=== PATIENT | female | born 1990 | race Caucasian/White ===

== ENCOUNTER 2016-12-03 21:23 | Emergency (ER) | payer MEDICAID ==
[~2016-12-03] VITALS: Ht 165.1 cm; Wt 85.0 kg
[~2016-12-03 21:23] MED LIST: ACET1TAB40 PO; CIPR500T4 PO; DOXY100T20 PO; HC1C30 TOP; NITR-58 PO; ONDA4TAB8 PO; PHEN-538 PO
[2016-12-03 21:44] VITALS: Ht 165.1 cm; Wt 85.0 kg
[2016-12-03 22:16] LABS: URINE BLOOD (Dip) POC 1+ (NEGATIVE)
[2016-12-03] MEDS ORDERED: CIPR500T4 PO (22:21)
[2016-12-03] MEDS ORDERED: PHEN-538 PO (22:21)
--- NOTE | 2016-12-03 22:22 | ERD ---
ER Documentation Chief Complaint Date/Time DATE: 12/03/16 TIME: 22:22 Chief Complaint low back pain x 3 days, burn when urinate HPI This is a 26-year-old female comes in with low back pain for 3 days and burning when she urinates. No nausea no vomiting no chills. No sick contacts. No other current issues. ROS All systems reviewed and are negative except as per history of present illness. Medications Home Meds Active Scripts Phenazopyridine Hcl* (Pyridium*) 200 Mg Tab, 200 MG PO TID Y for URINARY PAIN, # 6 TAB Prov:MICHAEL GARCIA 12/03/16 Ciprofloxacin Hcl* (Ciprofloxacin Hcl*) 500 Mg Tablet, 500 MG PO BID for 5 Days , TAB Prov:MICHAEL GARCIA 12/03/16 Ondansetron Hcl* (Zofran*) 4 Mg Tablet, 4 MG PO Q6H for NAUSEA AND/OR VOMITING, #30 TAB Prov:RED FREIRE 06/01/16 Nitrofurantoin Monohyd Macrocr* (Macrobid*) 100 Mg Capsr, 100 MG PO BID for 7 Days, CAP Prov:RED FREIRE 06/01/16 Ciprofloxacin Hcl* (Ciprofloxacin Hcl*) 500 Mg Tablet, 500 MG PO BID for 3 Days , TAB Prov:JOSÉ LUIS KAUR DO 01/29/16 Phenazopyridine Hcl* (Pyridium*) 200 Mg Tab, 200 MG PO TID Y for URINARY PAIN, # 6 TAB Prov:JOSÉ LUIS KAUR DO 01/29/16 Doxycycline Hyclate* (Doxycycline Hyclate*) 100 Mg Tablet.dr, 100 MG PO BID for 7 Days, TAB Prov:AMAYA FIELDS DO 10/10/15 Hydrocortisone* Topical (Hydrocortisone* Topical) 1%-28.35 Gm Cream..g., 1 APPLIC TOP Q6 Y for ITCHING, #1 TUB Prov:AMAYA FIELDS DO 10/10/15 Acetaminophen-Codeine* (Acetaminophen-Cod #3*) 300-30 Mg Tab, 1 TAB PO Q4H Y for PAIN, #14 TAB Prov:MARGY LEWIS MD 12/03/14 Allergies Allergies: Coded Allergies: No Known Drug Allergy (Verified Allergy, Mild, 10/01/10) PMhx/Soc History of Surgery: No Anesthesia Reaction: No Hx Neurological Disorder: No Hx Respiratory Disorders: No Hx Cardiac Disorders: Yes (had HTN during ) Hx Psychiatric Problems: No Hx Miscellaneous Medical Probl: No Hx Alcohol Use: No Hx Substance Use: No Hx Tobacco Use: No Physical Exam Vitals Vital Signs Date Time Temp Pulse Resp B/P Pulse Ox O2 Delivery O2 Flow Rate FiO2 12/03/16 21:44 98.4 84 18 117/63 95 Physical Exam Const: [] Head: Atraumatic Eyes: Normal Conjunctiva ENT: Normal External Ears, Nose and Mouth. Neck: Full range of motion..~ No meningismus. Resp: Clear to auscultation bilaterally Cardio: Regular rate and rhythm, no murmurs Abd: Soft, non tender, non distended. Normal bowel sounds Skin: No petechiae or rashes Back: No midline or flank tenderness Ext: No cyanosis, or edema Neur: Awake and alert Psych: Normal Mood and Affect Results 24 hrs Laboratory Tests Test 12/03/16 22:18 Bedside Urine pH (LAB) 7.0 Bedside Urine Protein (LAB) Negative Bedside Urine Glucose (UA) Negative Bedside Urine Ketones (LAB) Negative Bedside Urine Blood 1+ Bedside Urine Nitrite (LAB) Negative Bedside Urine Leukocyte Esterase (L 1+ Procedures/MDM Medical decision-making: Patient has evidence of urinary tract infection on POC urine dip. Patient will be discharged from [facility]. Follow-up in 8 hours for serial abdominal exams. Follow-up with PMD tomorrow as well. Return for worsening symptoms. Departure Diagnosis: Primary Impression: Dysuria Condition: Stable Patient Instructions: Urinary Tract Infections in Women MICHAEL GARCIA Dec 03, 2016 22:22
[2016-12-03 22:28] VITALS: BP 123/65; PULSE 77; RESP 18; TEMP 97.9
== END 2016-12-03 22:28 | disposition home or self-care (01) ==
LOC: E/R 21:23
DX: R30.0 Dysuria (principal)
CPT/HCPCS: 81003; Z7502; 99283

== ENCOUNTER 2017-01-16 00:04 | Emergency (ER) | payer SELFPAY ==
[~2017-01-16] VITALS: Ht 157.5 cm; Wt 81.5 kg
[2017-01-16 00:18] VITALS: Ht 157.5 cm; Wt 81.5 kg
== END 2017-01-16 00:18 | disposition left against medical advice (07) ==
LOC: E/R 00:04
DX: Z53.21 Procedure and treatment not carried out due to patient leaving prior to being seen by health care provider (principal)

== ENCOUNTER 2017-04-28 21:02 | Outpatient (CLI) | payer MEDICAID ==
[~2017-04-28] VITALS: Ht 157.5 cm; Wt 83.7 kg
[2017-04-28 21:35] VITALS: BP 110/66; PULSE 88; RESP 18
[2017-04-28] MEDS ORDERED: IBUP200C70 PO (21:52)
[2017-04-28] MEDS ORDERED: PREN-17 PO (21:52)
[2017-04-28] MEDS ORDERED: CEFTRIAXONE 1 GM/50 ML (PMX) 50 ML IVPB ONE (22:30)
[2017-04-28] MEDS ORDERED: SOD CHLORIDE 0.9% 1,000 ML IV ONE (22:30)
[2017-04-28] MEDS ORDERED: ACETAMINOPHEN 1000MG/100ML IV 100 ML IVPB ONE (23:30)
--- NOTE | 2017-04-29 00:34 | PN ---
Triage Information Date/Time Apr 29, 2017 Reason for visit: Abd/pelvic pain Weeks of Gestation 23w 4d /Para 5/4 Diabetes: none Hypertention: none Additional information C/O lower abdominal pain and back pain x 1 weeks and diarrhea today only. No fever/chills. Objective Vital Signs Date Time Temp Pulse Resp B/P Pulse Ox O2 Delivery O2 Flow Rate FiO2 04/28/17 21:35 98.0 88 18 110/66 Room Air Heart Rate: 130's Contractions: None Exam Deferred Results/Medications Results 24 hrs Laboratory Tests Test 04/28/17 21:30 Urine Color YELLOW Urine Clarity CLOUDY A Urine pH 7.0 Urine Specific [place] 1.013 Urine Ketones NEGATIVE Urine Nitrite POSITIVE A Urine Bilirubin NEGATIVE Urine Urobilinogen NEGATIVE Urine Leukocyte Esterase 3+ H Urine Microscopic RBC 39 H Urine Microscopic WBC > 182 H Urine Squamous Epithelial Cells FEW Urine Bacteria FEW A Urine Hemoglobin 1+ H Urine Glucose NEGATIVE Urine Total Protein 2+ H Disposition: Discharge Assessment/Plan A:IUP at 23w 4d. UTI. P: After IV hydration and IV Rocephin and Tylenol the pt feels much better. She was advised to never take Motrin again while .Rx given for Macrobid 100 BID x 7 days. Pt d/c'ed home. MARILY GREEN MD Apr 29, 2017 00:34
== END 2017-04-29 01:05 | disposition home or self-care (01) ==
LOC: OBT 21:02 → L-D 21:04 → OBT 04-29 01:05
PROVIDERS: ATTEND Obstetrics & Gynecology
DX: O23.42 Unspecified infection of urinary tract in pregnancy, second trimester (principal); Z3A.23 23 weeks gestation of pregnancy
CPT/HCPCS: 36415; 81001; 87086; 96360; 96365; 96374; J0131; J0696; J7030; Z7500; G0463

== ENCOUNTER 2017-08-26 15:29 | Emergency (ER) | END 2017-08-26 20:56 | disposition home or self-care (01) ==